=== PATIENT | male | born 1990 | race Caucasian/White ===

== ENCOUNTER 2021-07-18 23:23 | Emergency (ER) | payer OTHER ==
[~2021-07-18] VITALS: Ht 180.3 cm; Wt 79.6 kg
[2021-07-18] MEDS ORDERED: OMEP-173 (23:31)
[2021-07-18] MEDS ORDERED: MORPHINE 4 MG/ML 1ML VIAL/SYRINGE (J2270) IV ONE (23:45)
[2021-07-18] MEDS ORDERED: ONDANSETRON 4MG/2ML VIAL IV ONE (23:45)
[2021-07-19 00:19] LABS: MEAN CORPUSCULAR HGB CONC 35.6 g/dl (32.0-36.5); PLATELET COUNT, AUTOMATED 273 10^3/uL (150-450); WHITE BLOOD COUNT 6.1 10^3/uL (4.0-10.0)
[2021-07-19 00:31] LABS: ERYTHROCYTE SEDIMENTATION RATE 2 mm/hr (0-15)
[2021-07-19 01:30] VITALS: BP 141/96
[2021-07-19 01:39] LABS: GC DNA AMPLIFICATION NEGATIVE (NEGATIVE)
[2021-07-19 01:41] LABS: ALBUMIN 4.5 GM/DL (3.2-5.2); ALT/SGPT 59 U/L (12-78); BILIRUBIN,TOTAL 0.5 MG/DL (0.2-1.0); BLOOD UREA NITROGEN 16 MG/DL (7-18); CALCIUM LEVEL 9.6 MG/DL (8.5-10.1); CARBON DIOXIDE LEVEL 31 MEQ/L (21-32); CHLORIDE LEVEL 107 MEQ/L (98-107); CREATININE FOR GFR 1.11 MG/DL (0.70-1.30); GLOMERULAR FILTRATION RATE > 60.0 (>60); GLUCOSE, FASTING 94 MG/DL (70-100); LIPASE 75 U/L (73-393); POTASSIUM SERUM 3.7 MEQ/L (3.5-5.1); SODIUM LEVEL 142 MEQ/L (136-145); TOTAL PROTEIN 7.4 GM/DL (6.4-8.2)
[2021-07-19] MEDS ORDERED: KETO10TAB PO (02:17)
[2021-07-19] MEDS ORDERED: FLOM0.4C39 PO (02:17)
[2021-07-19] MEDS ORDERED: KETOROLAC TROMETHAMINE 10 MG TAB PO ONE (02:25)
== END 2021-07-19 02:26 | disposition home or self-care (01) ==
LOC: M ED 23:23
DX: N20.0 Calculus of kidney (principal)
CPT/HCPCS: 74176; 76870; 80053; 81001; 83690; 85027; 85652; 87810; 87850; 96374; 96375; 99284; J2270; J2405

== ENCOUNTER 2022-07-08 08:02 | Emergency (ER) | payer OTHER ==
[~2022-07-08] VITALS: Ht 180.3 cm; Wt 85.3 kg
[~2022-07-08 08:02] MED LIST: FLOM0.4C39 PO; KETO10TAB PO; OMEP-173
[2022-07-08] MEDS ORDERED: VENTAER INH (08:44)
[2022-07-08 08:45] VITALS: BP 146/94
== END 2022-07-08 08:55 | disposition home or self-care (01) ==
LOC: M ED 08:02
DX: J06.9 Acute upper respiratory infection, unspecified (principal); Z88.0 Allergy status to penicillin; Z88.2 Allergy status to sulfonamides; Z88.8 Allergy status to other drugs, medicaments and biological substances

== ENCOUNTER 2022-10-19 10:24 | Emergency (ER) | payer OTHER ==
[~2022-10-19] VITALS: Ht 177.8 cm; Wt 83.3 kg
[~2022-10-19 10:24] MED LIST changes: +VENTAER INH
[2022-10-19 10:25] VITALS: BP 143/97; TEMP 98.7; O2SAT 98
[2022-10-19] MEDS ORDERED: MUCI1TAB16 PO (10:46)
[2022-10-19] MEDS ORDERED: OMEP-173 (10:46)
== END 2022-10-19 11:57 | disposition home or self-care (01) ==
LOC: M ED 10:24
DX: J20.9 Acute bronchitis, unspecified (principal); Z88.0 Allergy status to penicillin; Z88.2 Allergy status to sulfonamides; Z88.8 Allergy status to other drugs, medicaments and biological substances; Z79.51 Long term (current) use of inhaled steroids; Z79.899 Other long term (current) drug therapy

== ENCOUNTER 2023-08-26 11:52 | Emergency (ER) | payer OTHER ==
[~2023-08-26] VITALS: Ht 177.8 cm; Wt 81.0 kg
[~2023-08-26 11:52] MED LIST changes: +MUCI1TAB16 PO
[2023-08-26] MEDS ORDERED: THERTAB52 PO (12:02)
[2023-08-26] MEDS ORDERED: PROB250C PO (12:02)
[2023-08-26 13:13] LABS: BASO # 0.1 10^3/uL (0.0-0.2); BASO % 0.8 % (0.0-1.0); EOS # 0.1 10^3/uL (0.0-0.5); EOS % 0.8 % (0.0-3.0); HEMOGLOBIN 16.3 g/dl (13.5-17.5); LYMPH # 1.6 10^3/uL (1.5-5.0); LYMPH % 24.9 % (24.0-44.0); MEAN CORPUSCULAR HEMOGLOBIN 32.3 pg (27.0-33.0); MEAN CORPUSCULAR HGB CONC 35.4 g/dl (32.0-36.5); MEAN CORPUSCULAR VOLUME 91.1 fl (80.0-96.0); MONO # 0.6 10^3/uL (0.0-0.8); MONO % 8.6 % (2.0-8.0); NEUTROPHILS # 4.3 10^3/uL (1.5-8.5); NEUTROPHILS % 64.4 % (36.0-66.0); PLATELET COUNT, AUTOMATED 307 10^3/uL (150-450); RED BLOOD COUNT 5.05 10^6/uL (4.30-6.10); WHITE BLOOD COUNT 6.6 10^3/uL (4.0-10.0)
[2023-08-26 13:20] LABS: ERYTHROCYTE SEDIMENTATION RATE 4 mm/hr (0-15)
[2023-08-26 13:39] LABS: C REACTIVE PROTEIN QUANTITATIV < 0.40 MG/DL (<1.0)
[2023-08-26 13:40] LABS: BLOOD UREA NITROGEN 9 MG/DL (9-23); CALCIUM LEVEL 9.4 MG/DL (8.5-10.1); CARBON DIOXIDE LEVEL 29 MMOL/L (20-31); CHLORIDE LEVEL 106 MMOL/L (98-107); CREATININE FOR GFR 0.89 MG/DL (0.70-1.30); GLOMERULAR FILTRATION RATE > 60.0 (>60); GLUCOSE, FASTING 85 MG/DL (60-100); MAGNESIUM LEVEL 1.9 MG/DL (1.8-2.4); POTASSIUM SERUM 4.5 MMOL/L (3.5-5.1); SODIUM LEVEL 140 MMOL/L (136-145)
[2023-08-26 14:44] VITALS: O2SAT 100
[2023-08-26 15:58] VITALS: BP 144/78
[2023-08-26] MEDS ORDERED: AMIT25TA19 PO (16:33)
[2023-08-26] MEDS ORDERED: AMIT-255 PO (16:33)
[2023-08-26 16:42] VITALS: TEMP 98.3
== END 2023-08-26 16:43 | disposition home or self-care (01) ==
LOC: M ED 11:52
DX: G44.309 Post-traumatic headache, unspecified, not intractable (principal); F07.81 Postconcussional syndrome; Z88.0 Allergy status to penicillin; Z88.2 Allergy status to sulfonamides

== ENCOUNTER 2023-10-08 12:27 | Day surgery (SDC) | payer OTHER ==
[~2023-10-08] VITALS: Ht 180.3 cm; Wt 79.7 kg
[~2023-10-08 12:27] MED LIST changes: +AMIT-255 PO; +AMIT25TA19 PO; +FLON1SPR; +PROB250C PO; +THERTAB52 PO
[2023-10-08] MEDS: NS 1,000 ML IV ONE (12:55)
[2023-10-08] MEDS ORDERED: fentaNYL 100 MCG/2 ML INJECTION As Ordered ONE (13:06)
[2023-10-08] MEDS ORDERED: propofoL 200 MG/20 ML VIAL As Ordered ONE (13:14)
[2023-10-08] MEDS ORDERED: LIDOCAINE 2% 100MG/5ML SDV (FOR ANES.) As Ordered ONE (13:35)
[2023-10-08 13:47] VITALS: TEMP 99.2
[2023-10-08 14:10] VITALS: BP 127/81; O2SAT 100
== END 2023-10-08 14:19 | disposition home or self-care (01) ==
LOC: M OPP 12:27
PROVIDERS: ATTEND Internal Medicine Gastroenterology
DX: D12.6 Benign neoplasm of colon, unspecified (principal); K64.0 First degree hemorrhoids; K29.70 Gastritis, unspecified, without bleeding; K22.89 Other specified disease of esophagus; R12 Heartburn; Z79.51 Long term (current) use of inhaled steroids; Z79.899 Other long term (current) drug therapy; Z88.0 Allergy status to penicillin; Z88.2 Allergy status to sulfonamides; Z88.8 Allergy status to other drugs, medicaments and biological substances
CPT/HCPCS: 43239; 45385; 88305; J3010

== ENCOUNTER 2023-12-03 14:56 | Emergency (ER) | payer OTHER ==
[~2023-12-03] VITALS: Ht 180.3 cm; Wt 89.3 kg
[2023-12-03 17:48] LABS: BASO # 0.1 10^3/uL (0.0-0.2); BASO % 0.7 % (0.0-1.0); EOS # 0.1 10^3/uL (0.0-0.5); EOS % 1.5 % (0.0-3.0); HEMATOCRIT 45.8 % (42.0-52.0); HEMOGLOBIN 16.3 g/dl (13.5-17.5); LYMPH # 2.1 10^3/uL (1.5-5.0); LYMPH % 30.5 % (24.0-44.0); MEAN CORPUSCULAR HEMOGLOBIN 32.5 pg (27.0-33.0); MEAN CORPUSCULAR HGB CONC 35.6 g/dl (32.0-36.5); MEAN CORPUSCULAR VOLUME 91.4 fl (80.0-96.0); MONO # 0.5 10^3/uL (0.0-0.8); MONO % 7.9 % (2.0-8.0); PLATELET COUNT, AUTOMATED 260 10^3/uL (150-450); RED BLOOD COUNT 5.01 10^6/uL (4.30-6.10); WHITE BLOOD COUNT 6.7 10^3/uL (4.0-10.0)
[2023-12-03 18:10] LABS: ALBUMIN 4.5 G/DL (3.2-5.2); ALKALINE PHOSPHATASE 89 U/L (46-116); ALT/SGPT 44 U/L (7.0-40); AST/SGOT 21 U/L (<34); BILIRUBIN,TOTAL 0.3 MG/DL (0.3-1.2); BLOOD UREA NITROGEN 10 MG/DL (9-23); CALCIUM LEVEL 9.8 MG/DL (8.5-10.1); CARBON DIOXIDE LEVEL 30 MMOL/L (20-31); CHLORIDE LEVEL 103 MMOL/L (98-107); CREATININE FOR GFR 0.92 MG/DL (0.70-1.30); GLOMERULAR FILTRATION RATE > 60.0 (>60); GLUCOSE, FASTING 93 MG/DL (60-100); SODIUM LEVEL 139 MMOL/L (136-145); TOTAL PROTEIN 6.7 G/DL (5.7-8.2)
[2023-12-03 18:31] VITALS: TEMP 97.8; O2SAT 98
[2023-12-03 18:42] VITALS: BP 163/92
[2023-12-03] MEDS ORDERED: MECL-209 PO (19:29)
[2023-12-03] MEDS: MECLIZINE 25 MG TABLET PO ONE (19:32)
== END 2023-12-03 19:41 | disposition home or self-care (01) ==
LOC: M ED 14:56
DX: R42 Dizziness and giddiness (principal); Z87.820 Personal history of traumatic brain injury; Z79.899 Other long term (current) drug therapy; Z88.0 Allergy status to penicillin; Z88.2 Allergy status to sulfonamides; Z88.8 Allergy status to other drugs, medicaments and biological substances

== ENCOUNTER → 2024-02-10 | Outpatient (REF) ==
[~2024-02-10] MED LIST changes: +MECL-209 PO
== END ==
LOC: M PLAIMG 09:28
PROVIDERS: ATTEND Internal Medicine
DX: E52 Niacin deficiency [pellagra] (principal)

== ENCOUNTER → 2024-02-21 | Outpatient (REF) | payer OTHER ==
[2024-02-22 03:38] LABS: APPEARANCE, URINE CLEAR (CLEAR); BACTERIA, URINE AUTO NEGATIVE (NEGATIVE); BILIRUBIN, URINE AUTO NEGATIVE (NEGATIVE); BLOOD, URINE BLOOD NEGATIVE (NEGATIVE); COLOR, URINE STRAW (YELLOW); GLUCOSE, URINE (UA) AUTO NEGATIVE (NEGATIVE); KETONE, URINE AUTO NEGATIVE (NEGATIVE); LEUKOCYTE ESTERASE, URINE AUTO NEGATIVE (NEGATIVE); NITRITE, URINE AUTO NEGATIVE (NEGATIVE); PROTEIN, URINE AUTO NEGATIVE (NEGATIVE); RBC, URINE AUTO 0 /HPF (0-3); SPECIFIC GRAVITY URINE AUTO 1.006 (1.002-1.035); SQUAMOUS EPITHELIAL CELL UR AU 0 /HPF (0-6); UROBILINOGEN, URINE AUTO 0.2 mg/dL (0.0-2.0); WBC, URINE AUTO 0 /HPF (0-3)
== END ==
LOC: M LAB REF 13:17
PROVIDERS: ATTEND Physician Assistant Medical
DX: N39.0 Urinary tract infection, site not specified (principal)

== ENCOUNTER 2024-07-13 09:50 | Emergency (ER) | payer OTHER ==
[~2024-07-13] VITALS: Ht 180.3 cm; Wt 84.0 kg
[2024-07-13] MEDS ORDERED: PROP10TA56 (09:56)
[2024-07-13] MEDS ORDERED: FLUO-290 (09:56)
[2024-07-13] MEDS ORDERED: ALBU8.5H (09:56)
[2024-07-13 10:14] LABS: KETONE, URINE AUTO RFX NEGATIVE (NEGATIVE); LEUKOCYTE ESTERASE UR AUTO RFX NEGATIVE (NEGATIVE); MUCUS, URINE RFX SMALL (NEGATIVE); NITRITE, URINE AUTO RFX NEGATIVE (NEGATIVE); RBC, URINE AUTO RFX 2 /HPF (0-3); SQUAM EPITHELIAL CELL UR AURFX 0 /HPF (0-6); WBC, URINE AUTO RFX 0 /HPF (0-3)
[2024-07-13 11:41] LABS: GC DNA AMPLIFICATION NEGATIVE (NEGATIVE)
[2024-07-13 13:10] VITALS: BP 146/93; TEMP 96.5; O2SAT 100
== END 2024-07-13 13:16 | disposition home or self-care (01) ==
LOC: M ED 09:50
DX: R39.15 Urgency of urination (principal); Z88.0 Allergy status to penicillin; Z88.2 Allergy status to sulfonamides; Z87.442 Personal history of urinary calculi

== ENCOUNTER 2024-07-17 05:43 | Emergency (ER) | payer OTHER ==
[~2024-07-17] VITALS: Ht 180.3 cm; Wt 84.0 kg
[~2024-07-17 05:43] MED LIST changes: +ALBU8.5H; +FLUO-290; +PROP10TA56
[2024-07-17 06:28] LABS: BASO # 0.1 10^3/uL (0.0-0.2); BASO % 0.8 % (0.0-1.0); EOS # 0.2 10^3/uL (0.0-0.5); EOS % 2.7 % (0.0-3.0); HEMATOCRIT 45.7 % (42.0-52.0); LYMPH # 2.2 10^3/uL (1.5-5.0); LYMPH % 34.5 % (24.0-44.0); MEAN CORPUSCULAR VOLUME 91.4 fl (80.0-96.0); MONO # 0.8 10^3/uL (0.0-0.8); MONO % 12.5 % (2.0-8.0); NEUTROPHILS # 3.1 10^3/uL (1.5-8.5); NEUTROPHILS % 49.2 % (36.0-66.0); PLATELET COUNT, AUTOMATED 282 10^3/uL (150-450); WHITE BLOOD COUNT 6.2 10^3/uL (4.0-10.0)
[2024-07-17] MEDS: NS (Normal Saline) 0.9% 1,000 ML IV ONE (06:42)
[2024-07-17] MEDS: KETOROLAC 30 MG/ML 1ML VIAL IV ONE (06:42)
[2024-07-17 06:55] LABS: LIPASE 34 U/L (12-53)
[2024-07-17 06:57] LABS: ALBUMIN 4.2 G/DL (3.2-5.2); ALKALINE PHOSPHATASE 75 U/L (40-129); ALT/SGPT 97 U/L (7.0-40); AST/SGOT 191 U/L (<34); BILIRUBIN,DIRECT < 0.1 MG/DL (<0.4); BILIRUBIN,TOTAL 0.3 MG/DL (0.3-1.2); BLOOD UREA NITROGEN 16 MG/DL (9-23); CALCIUM LEVEL 9.3 MG/DL (8.5-10.1); CARBON DIOXIDE LEVEL 28 MMOL/L (20-31); CHLORIDE LEVEL 105 MMOL/L (98-107); GLOMERULAR FILTRATION RATE > 60.0 (>60); GLUCOSE, FASTING 100 MG/DL (60-100); POTASSIUM SERUM 4.4 MMOL/L (3.5-5.1); SODIUM LEVEL 141 MMOL/L (136-145); TOTAL PROTEIN 6.8 G/DL (5.7-8.2)
[2024-07-17 07:56] LABS: KETONE, URINE AUTO RFX NEGATIVE (NEGATIVE); LEUKOCYTE ESTERASE UR AUTO RFX NEGATIVE (NEGATIVE); MUCUS, URINE RFX SMALL (NEGATIVE); NITRITE, URINE AUTO RFX NEGATIVE (NEGATIVE); RBC, URINE AUTO RFX TNTC /HPF (0-3); SQUAM EPITHELIAL CELL UR AURFX 0 /HPF (0-6); WBC, URINE AUTO RFX 1 /HPF (0-3)
[2024-07-17 08:54] VITALS: TEMP 98.2; O2SAT 98
[2024-07-17] MEDS ORDERED: KETO10TAB PO (08:59)
[2024-07-17] MEDS ORDERED: FLOM0.4C39 PO (08:59)
[2024-07-17 09:32] VITALS: BP 132/62
== END 2024-07-17 09:23 | disposition home or self-care (01) ==
LOC: M ED 05:43
DX: N20.0 Calculus of kidney (principal); N23 Unspecified renal colic; R31.9 Hematuria, unspecified; R79.9 Abnormal finding of blood chemistry, unspecified; R74.01 Elevation of levels of liver transaminase levels; K58.9 Irritable bowel syndrome, unspecified; Z87.442 Personal history of urinary calculi; Z87.440 Personal history of urinary (tract) infections; Z87.820 Personal history of traumatic brain injury; Z79.899 Other long term (current) drug therapy; Z88.0 Allergy status to penicillin; Z88.2 Allergy status to sulfonamides; Z88.8 Allergy status to other drugs, medicaments and biological substances
CPT/HCPCS: 74176; 80048; 80076; 81001; 83690; 85025; 96361; 96374; 99284; J1885

== ENCOUNTER 2024-08-23 13:22 | Emergency (ER) | payer OTHER ==
[~2024-08-23] VITALS: Ht 180.3 cm; Wt 84.5 kg
[2024-08-23] MEDS: DERMABOND TOPICAL SKIN ADHESIVE TOP ONE (17:15)
[2024-08-23] MEDS: BOOSTRIX VACCINE (TETANUS/DIPHTH/ACEL. PERTUSSIS) 0.5ML SYR IM.IMMUN ONE (17:36)
[2024-08-23 18:07] VITALS: BP 128/82; TEMP 98.3; O2SAT 98
== END 2024-08-23 18:07 | disposition home or self-care (01) ==
LOC: M ED 13:22
DX: S61.213A Laceration without foreign body of left middle finger without damage to nail, initial encounter (principal); W26.0XXA Contact with knife, initial encounter; Y92.009 Unspecified place in unspecified non-institutional (private) residence as the place of occurrence of the external cause; Y93.89 Activity, other specified; Y99.9 Unspecified external cause status; Z88.0 Allergy status to penicillin; Z88.2 Allergy status to sulfonamides; Z23 Encounter for immunization